=== PATIENT | male | born 1945 | race Caucasian/White ===

== ENCOUNTER 2018-02-18 17:10 | Inpatient (IN) ==
--- NOTE | 2018-02-18 17:38 | Emergency Department Note ---
Disposition Clinical Impression: Cellulitis and abscess of buttock Disposition: Admitted As Inpatient Condition: Fair Referrals: Perfecto Barlow MD [Primary Care Provider] - Lower Extremity Injury HPI - General Stated Complaint: fall Time Seen by Provider: 02/18/18 17:12 Source: patient Mode of arrival: EMS Nursing Notes Reviewed: Yes Vital Signs Reviewed: Yes - History of Present Illness HPI Narrative: 72-year-old male presents for evaluation of pain swelling and redness to his lower inguinal area along with leg swelling and inability to ambulate. Patient states over the last few days he has been developing increasing peripheral edema associated with decreased ability to ambulate secondary to muscular weakness. He has had 4 falls. Patient states no fever or chills. He has had problems with chronic cellulitis to the lower extremities and peripheral edema for some time. Patient states no current chest pain or shortness of breath. He denies a nausea vomiting. He denies any current abdominal pain. He had a fall yesterday that he was seen at [facility] and evaluated for left knee pain which x-rays were found to be normal. He states he was provided an John wrap. - Related Data Home Medications Medication Instructions Recorded Confirmed Atenolol [Tenormin] 25 mg PO DAILY 02/18/18 02/18/18 Cholecalciferol (Vitamin D3) 2,000 unit PO DAILY 02/18/18 02/18/18 [Vitamin D3] Furosemide [Lasix] 40 mg PO BID 02/18/18 02/18/18 Glimepiride [Amaryl] 4 mg PO DAILY 02/18/18 02/18/18 HYDROcodone/Acet 10/325 mg [[place] 1 tab PO Q4HR PRN 02/18/18 02/18/18 10-325 mg] Losartan/Hydrochlorothiazide 1 each PO DAILY 02/18/18 02/18/18 [Losartan-Hctz 100-25 mg Tab] Potassium Chloride [Klor-Con 10 meq PO DAILY 02/18/18 02/18/18 Sprinkle] Pravastatin Sodium [Pravachol] 40 mg PO HS 02/18/18 02/18/18 Spironolactone [Aldactone] 25 mg PO DAILY 02/18/18 02/18/18 Warfarin [Coumadin] 2 mg PO 1800 02/18/18 02/18/18 metFORMIN [Glucophage] 750 mg PO BIDWM 02/18/18 02/18/18 traZODone [TraZODone] 100 mg PO HS 02/18/18 02/18/18 Allergies Allergy/AdvReac Type Severity Reaction Status Date / Time Erythromycin Base Allergy Hives Verified 02/26/17 17:53 moxifloxacin [From Avelox] Allergy Hives Verified 02/26/17 17:53 Penicillins Allergy Hives Verified 02/26/17 17:53 Review of Systems: Constitutional: [Negative for fever and chills.] HENT: [Negative for congestion.] Eyes: [Negative for discharge.] Respiratory: [Negative for shortness of breath.] Cardiovascular: [Negative for chest pain.] Gastrointestinal: [Negative for nausea, vomiting, abdominal pain and diarrhea.] Endocrine: [Negative for excessive thirst,urination] Genitourinary: [Negative for dysuria and frequency.] Musculoskeletal: See history of present illness Skin: see history of present illness Neurological: [Negative for dizziness, localized weakness and headaches.] Psychiatric/Behavioral: [Negative for nervous/anxious.] All other systems reviewed and are negative. Past Medical History - Past Medical History Attestation: Yes The following information was validated with the patient. Source: patient Medical history: Reports: diabetes, hypertension - Social History Smoking Status: Never smoker Smokeless Tobacco Status: No Alcohol use: Reports: none Physical Exam Constitutional: Patient is [alert], morbidly obese and cooperative. HENT: Head: Normocephalic and atraumatic. Right Ear: External ear normal. Left Ear: External ear normal. Nose: Nose normal. Mouth/Throat: Oropharynx is clear and mucous membranes show [good hydration.] Eyes: Conjunctivae and EOM are normal. Pupils are equal, round, and reactive to light. Right eye exhibits [no] discharge. Left eye exhibits [no] discharge. Neck: Trachea is midline, normal range of motion and [phonation normal]. Neck supple. Cardiovascular: [Regular rhythm], S1 normal, S2 normal, normal heart sounds and intact distal pulses. Exam reveals no gallop and no friction rub. No murmur heard. [Capillary refill is brisk.] [Peripheral pulses are 2+] Pulmonary/Chest: Effort [normal] No stridor. [No] tachypnea. [No] respiratory distress. There are [no] decreased breath sounds. [There no wheezes, no rhonchi , or rales.] Abdominal: Soft. [Bowel sounds are normal]. There exhibits [no] distension and [no] mass. There is no hepatosplenomegaly. There is [no tenderness], [no] CVA tenderness. There is [no rigidity, no rebound, no guarding]. Patient has indurated erythematous excoriated skin along his inner folds of his inguinal area inferior aspect. I feel no crepitus. There is some mild superficial skin ulceration Musculoskeletal: Normal range of motion of uninvolved extremities. There exhibits 3+ edema]. He has bandages in place related to his lower extremities with no obvious erythema to the skin] Neurological: Patient is alert. Patient displays no atrophy and no tremor. No cranial nerve deficit and exhibits normal muscle tone. Coordination normal grossly. Skin: Skin is warm and dry. No erythema. No rash noted. Psychiatric: Patient has a normal mood and affect. Course Course Narrative: Patient's laboratory studies show evidence of infection, i.e. cellulitis. Lactic acid being elevated which suggest possibility of early sepsis. I discussed the case with Dr. Gibbs who agrees with admission and possible half-way placement. I have written initial orders for the convenience of the Dr Gibbs. He will assume further care upon the patient's arrival to the floor. Vital Signs Temperature 98.4 F 02/18/18 17:14 Pulse Rate 58 02/18/18 17:14 Respiratory Rate 18 02/18/18 17:14 Blood Pressure 140/74 02/18/18 17:14 O2 Sat by Pulse Oximetry 98 02/18/18 17:14 Temperature 98.4 F 02/18/18 17:14 Pulse Rate 58 02/18/18 17:14 Respiratory Rate 18 02/18/18 17:14 Blood Pressure 140/74 02/18/18 17:14 O2 Sat by Pulse Oximetry 98 02/18/18 17:14 Oxygen Delivery Oxygen Delivery Room Air Extremity Injury, Lower - MDM Narrative Medical decision making narrative: Differential diagnosis includes CELLULITIS, WOUNDS , ARAGON, ABSCESS, CONTACT DERMATITUS, ECZEMA, OR HERPES INFECTION. There is no evidence of NECROTIZING FASCIITIS . - Lab Data Lab results reviewed: Yes I reviewed the patient's lab results. Result diagrams: 02/18/18 17:50 02/18/18 17:50 Lab Results 02/18/18 02/18/18 02/18/18 Range/Units 17:50 17:50 17:50 WBC 11.8 H (4.3-11.1) K/mcL RBC 4.60 (4.19-5.50) M/mcL Hgb 13.7 (12.9-16.9) g/dL Hct 40.9 (37.5-50.1) % MCV 88.9 (83.0-100.0) fL MCH 29.8 (28.0-33.3) pg MCHC 33.5 (31.6-35.5) g/dL RDW 15.1 H (11.5-14.5) % Plt Count 266 (140-400) K/mcL MPV 10.5 (9.4-12.4) fL Immature Gran % 0.3 (0-4) % Seg Neutrophils % 70.8 % Lymphocytes % 18.6 % Monocytes % 7.0 % Eosinophils % 2.9 % Basophils % 0.4 % Neutrophils # 8.4 (1.6-8.9) K/mcL Lymphocytes # 2.2 (0.6-4.6) K/mcL Monocytes # 0.8 (0.0-1.3) K/mcL Eosinophils # 0.3 (0.0-0.6) K/mcL Basophils # 0.1 (0.0-0.2) K/mcL Sodium 133 L (136-145) mEq/L Potassium 4.9 (3.5-5.1) mEq/L Chloride 100 (98-107) mEq/L Carbon Dioxide 28 (23-29) mEq/L BUN 13 (8-23) mg/dL Creatinine 0.73 (0.70-1.30) mg/dL Est GFR ( Amer) > 60 (> 60) Est GFR (Non-Af Amer) > 60 (> 60) BUN/Creatinine Ratio 18 (6-26) Glucose 198 H (70-105) mg/dL Calculated Osmolality 282 (280-300) Lactic Acid 2.5 H (0.5-2.2) mmol/L Calcium 9.4 (8.6-10.3) mg/dL Total Bilirubin 0.5 (0.3-1.0) mg/dL AST 15 (13-39) Units/L ALT 16 (7-52) Units/L Alkaline Phosphatase 62 (34-104) Units/L Serum Total Protein 5.8 L (6.4-8.9) g/dL Albumin 3.1 L (3.5-5.7) g/dL Globulin 2.7 (2.4-3.5) g/dL Albumin/Globulin Ratio 1.1 (1.1-2.2)
[2018-02-18 18:13] LABS: Basophils # 0.1 K/mcL (0.0-0.2); Basophils % 0.4 %; Eosinophils # 0.3 K/mcL (0.0-0.6); Eosinophils % 2.9 %; Hematocrit 40.9 % (37.5-50.1); Hemoglobin 13.7 g/dL (12.9-16.9); Immature Granulocytes % 0.3 % (0-4); Lymphocytes # 2.2 K/mcL (0.6-4.6); Lymphocytes % 18.6 %; Mean Corpuscular HGB Conc 33.5 g/dL (31.6-35.5); Mean Corpuscular Hemoglobin 29.8 pg (28.0-33.3); Mean Corpuscular Volume 88.9 fL (83.0-100.0); Mean Platelet Volume 10.5 fL (9.4-12.4); Monocytes # 0.8 K/mcL (0.0-1.3); Neutrophils # 8.4 K/mcL (1.6-8.9); Platelet Count 266 K/mcL (140-400); Red Cell Distribution Width 15.1 % (11.5-14.5); Segmented Neutrophils % 70.8 %
[2018-02-18 18:33] LABS: Alanine Aminotransferase 16 Units/L (7-52); Albumin 3.1 g/dL (3.5-5.7); Albumin/Globulin Ratio 1.1 (1.1-2.2); Alkaline Phosphatase 62 Units/L (34-104); Aspartate Amino Transferase 15 Units/L (13-39); BUN/Creatinine Ratio 18 (6-26); Bilirubin,Total 0.5 mg/dL (0.3-1.0); Blood Urea Nitrogen 13 mg/dL (8-23); Calcium 9.4 mg/dL (8.6-10.3); Carbon Dioxide 28 mEq/L (23-29); Chloride 100 mEq/L (98-107); Globulin 2.7 g/dL (2.4-3.5); Glucose 198 mg/dL (70-105); Osmolality,Calculated 282 (280-300); Potassium 4.9 mEq/L (3.5-5.1); Sodium 133 mEq/L (136-145); Total Protein 5.8 g/dL (6.4-8.9); eGFR For African Americans > 60 (> 60); eGFR For Non-African Americans > 60 (> 60)
[2018-02-18] MEDS ORDERED: Acetaminophen 325 MG TABLET PO PRN (19:00)
[2018-02-18] MEDS ORDERED: Naloxone 0.4 MG/ML INJ IVP PRN (19:00)
[2018-02-18 19:06] LABS: INR 1.7; Prothrombin Time 18.7 Seconds (9.4-12.1)
[2018-02-18 19:09] LABS: Activated Partial Thrombo Time 34.5 Seconds (26.0-36.0)
[2018-02-18] MEDS ORDERED: *HR* Warfarin 2 MG TABLET PO SCH (21:26)
[2018-02-18] MEDS: cefTRIAXone 1,000 MG in Water for inj. (sterile) 20 ML 10 ML IVP SCH (21:33)
[2018-02-18] MEDS: *HR* HYDROcodone/Acet 10/325 mg TABLET PO PRN (21:34)
[2018-02-18] MEDS: traZODone 50 MG TABLET PO SCH (21:34)
[2018-02-18] MEDS: Furosemide 40 MG TABLET PO SCH (21:34)
[2018-02-18] MEDS: *HR* Warfarin 2 MG TABLET PO SCH (21:57)
[2018-02-19] MEDS: *HR* HYDROcodone/Acet 10/325 mg TABLET PO PRN ×3 (02:45→20:02)
[2018-02-19 07:21] LABS: Basophils # 0.1 K/mcL (0.0-0.2); Basophils % 0.5 %; Eosinophils # 0.6 K/mcL (0.0-0.6); Eosinophils % 6.1 %; Hematocrit 40.3 % (37.5-50.1); Hemoglobin 13.3 g/dL (12.9-16.9); Immature Granulocytes % 0.4 % (0-4); Lymphocytes # 3.1 K/mcL (0.6-4.6); Lymphocytes % 31.4 %; Mean Corpuscular Hemoglobin 29.3 pg (28.0-33.3); Mean Corpuscular Volume 88.8 fL (83.0-100.0); Mean Platelet Volume 10.3 fL (9.4-12.4); Monocytes % 10.3 %; Neutrophils # 5.1 K/mcL (1.6-8.9); Platelet Count 248 K/mcL (140-400); Red Blood Count 4.54 M/mcL (4.19-5.50); Red Cell Distribution Width 15.1 % (11.5-14.5); Segmented Neutrophils % 51.3 %
[2018-02-19] MEDS: cefTRIAXone 1,000 MG in Water for inj. (sterile) 20 ML 10 ML IVP SCH ×2 (07:50→20:01)
[2018-02-19] MEDS: Furosemide 40 MG TABLET PO SCH ×2 (07:51→16:19)
[2018-02-19] MEDS: Cholecalciferol (D-3) 1,000 UNIT TABLET PO SCH (07:51)
[2018-02-19] MEDS: hydroCHLOROthiazide 25 MG TABLET PO SCH (07:51)
[2018-02-19] MEDS: *HR* Glimepiride 4 MG TABLET PO SCH (07:51)
[2018-02-19] MEDS: *HR* Metformin 500 MG TABLET PO SCH ×2 (07:52→16:19)
[2018-02-19] MEDS ORDERED: hydroCHLOROthiazide 25 MG TABLET PO SCH (09:00)
[2018-02-19] MEDS ORDERED: NON-FORMULARY MEDICATION 1 EACH EACH (Losartan/Hydrochlorothiazide [Losartan-Hctz 100-25 M PO SCH (09:00)
[2018-02-19] MEDS ORDERED: Spironolactone 25 MG TABLET PO SCH (09:00)
--- NOTE | 2018-02-19 11:56 | Internal Med History&Physical ---
Date of Encounter: 02/19/18 Time of Encounter: 11:54 Assessment and Plan (1) Cellulitis and abscess of buttock Current visit: Yes Status: Acute Continue antibiotics and monitor for improvement. (2) Morbid obesity Current visit: Yes Status: Acute Provide education (3) Slow transit constipation Current visit: Yes Status: Acute Miralax ordered. Will follow for effectiveness. (4) Diabetes type 2, controlled Current visit: Yes Status: Acute Controlled with current medications. Continue diabetic diet. Monitor fingerstick blood sugars. Will adjust medications as necessary. Qualifiers: Diabetes mellitus shelter insulin use: without terminal superintendent use Diabetes mellitus complication status: without complication Qualified Code(s): E11.9 - Type 2 diabetes mellitus without complications (5) Cellulitis of both lower extremities Current visit: Yes Status: Acute Consult wound for possible olinda boots. Continue antibiotics. Will monitor. Internal Medicine - H&P: HPI Admitted From: Emergency Dept Plans for Post Hospital Care: Home History of present illness: Mr. Fernandez is a 72 year old male admitted to inpatient after arriving to the emergency room last night with general muscle weakness and pain, swelling, redness to lower inguinal area. States he is unable to ambulate. Fell at home with no injury. Has had for recent falls since the of the year. Has chronic cellulitis to bilateral lower extremities. Patient is morbidly obese. Past medical history includes diabetes and hypertension. Patient denies pain, fever, chills, nausea, vomiting or diarrhea. Lives at home alone and daughter helps with care, states his in December. Past Med Surg Social Fam HX - Past Medical History Medical history: cancer, CHF, diabetes, hypertension Psychiatric history: no psych history - Past Surgical History Surgical History: appendectomy, prostatectomy, thyroidectomy Additional surgical history: goiter - Social History Smoking Status: Former smoker Smokeless Tobacco Status: No Alcohol use: none Drug use: none - Family History Daughter Adopted: [place]: Taryn Rojas Age: 50 Family Member Ethnicity: Non- Living Status: Still Living Hx Family Cardiac Disorders: Yes Hx Family Respiratory Disorders: Yes Hx Family Cancer: Yes Hx Family GI Disorders: No Hx Family Genitourinary Disorders: No Hx Family Endocrine Disorder: Yes Hx Family Musculoskeletal Disorders: No Hx Family Neuromuscular Disorders: No Hx Family Neurologic Disorders: No Hx Family HEENT Disorders: No Hx Family Autoimmune Disorders: No Hx Family Reproductive Disorders: No Hx Family Psychosocial Disorders: No Hx Family Medical Disorders: No Internal Medicine - H&P: Meds Atenolol [Tenormin] 25 mg PO DAILY 02/18/18 [History] Cholecalciferol (Vitamin D3) [Vitamin D3] 2,000 unit PO DAILY 02/18/18 [History] Furosemide [Lasix] 40 mg PO BID 02/18/18 [History] Glimepiride [Amaryl] 4 mg PO DAILY 02/18/18 [History] HYDROcodone/Acet 10/325 mg [[place] 10-325 mg] 1 tab PO Q4HR PRN 02/18/18 [History ] Losartan/Hydrochlorothiazide [Losartan-Hctz 100-25 mg Tab] 1 each PO DAILY 02/18 [History] Potassium Chloride [Klor-Con Sprinkle] 10 meq PO DAILY 02/18/18 [History] Pravastatin Sodium [Pravachol] 40 mg PO HS 02/18/18 [History] Spironolactone [Aldactone] 25 mg PO DAILY 02/18/18 [History] Warfarin [Coumadin] 2 mg PO 1800 02/18/18 [History] metFORMIN [Glucophage] 750 mg PO BIDWM 02/18/18 [History] traZODone [TraZODone] 100 mg PO HS 02/18/18 [History] 3 Allergy/AdvReac Type Severity Reaction Status Date / Time Erythromycin Base Allergy Hives Verified 02/26/17 17:53 moxifloxacin [From Avelox] Allergy Hives Verified 02/26/17 17:53 Penicillins Allergy Hives Verified 02/26/17 17:53 All Systems PM: A 10-system review of systems was performed and is negative for pertinent findings except as documented above in the HPI. - Constitutional Constitutional: no chills, no fever(s), no night sweats - EENT Eyes: no change in vision, no discharge, no pain, no photophobia Ears: no ear discharge, no ear pain, no tinnitus Nose, mouth and throat: no dysphagia, no nasal discharge, no neck pain, no sore throat - Cardiovascular Cardiovascular ROS IM: no chest pain, no diaphoresis, no dyspnea, no lightheadedness, no palpitations, no syncope - Respiratory Respiratory: no cough, no dyspnea, no wheezing, no excessive phlegm production - Gastrointestinal Gastrointestinal: no abdominal pain, no diarrhea, no hematemesis, no hematochezia, no melena, no nausea, no vomiting - Musculoskeletal Musculoskeletal ROS IM: as per HPI, muscle weakness, no numbness, no tingling - Integumentary Integumentary IM: no rash, no unusual bruising - Neurological Neurological ROS: no confusion, no convulsions, no focal weakness, no numbness, no tingling, no tremor(s) - Hematologic/Lymphatic Hematologic/Lymphatic: no easy bruising - Constitutional Vitals: Temp Pulse Resp BP Pulse Ox 97.7 F 61 17 146/69 95 02/19/18 11:00 02/19/18 11:00 02/19/18 11:00 02/19/18 11:00 02/19/18 11:00 General appearance: Present: cooperative, A&O X 3, morbidly obese, pleasant, no acute distress, answers questions appropriately Exam: Incontinent of urine - Head Head exam: Present: atraumatic, normocephalic - Eye Eye exam: Present: PERRL, conjuntiva pink, sclera anicteric Pupils: Present: PERRL - Neck Neck exam general surgery: Present: supple, trachea midline. Absent: lymphadenopathy - Respiratory Respiratory exam: Present: CTAB. Absent: accessory muscle use, rales, rhonchi, wheezes - Cardiovascular Cardiovascular exam: Present: RRR, +S1, +S2. Absent: diastolic murmur, gallop, rubs, systolic murmur - GI/Abdominal GI/Abdominal exam: Present: normal bowel sounds, soft, no peritoneal signs. Absent: distended, tenderness - Extremities Exam Extremities exam: Present: warm, radial pulses palpable and symmetrical. Absent : calf tenderness, cyanotic, pedal edema Additional comments: Bilateral lower extremities wrapped and dressings dry and intact. Left inner thigh excoriated with surrounding redness and possible abscess - Neurological Exam Neurological exam: Present: CN II-XII intact, oriented X3, no focal deficits. Absent: pronater drift, facial droop, speech deficit - Skin Skin exam: Present: dry, intact Internal Med - H&P Results - Labs CBC & Chem 7: 02/19/18 06:54 02/18/18 17:50 Labs: Short CBC 02/19/18 Range/Units 06:54 WBC 9.9 (4.3-11.1) K/mcL Hgb 13.3 (12.9-16.9) g/dL Hct 40.3 (37.5-50.1) % Plt Count 248 (140-400) K/mcL Neutrophils # 5.1 (1.6-8.9) K/mcL
[2018-02-19] MEDS: *HR* Warfarin 2 MG TABLET PO SCH (16:19)
[2018-02-19] MEDS ORDERED: *HR* Warfarin 2 MG TABLET PO SCH (18:00)
[2018-02-19] MEDS: Spironolactone 25 MG TABLET PO SCH (20:01)
[2018-02-19] MEDS: traZODone 50 MG TABLET PO SCH (20:01)
[2018-02-20] MEDS: *HR* HYDROcodone/Acet 10/325 mg TABLET PO PRN (02:27)
[2018-02-20] MEDS: cefTRIAXone 1,000 MG in Water for inj. (sterile) 20 ML 10 ML IVP SCH ×2 (06:33→18:12)
[2018-02-20] MEDS: Furosemide 40 MG TABLET PO SCH ×2 (08:52→18:07)
[2018-02-20] MEDS: hydroCHLOROthiazide 25 MG TABLET PO SCH (08:52)
[2018-02-20] MEDS: *HR* Metformin 500 MG TABLET PO SCH ×2 (08:53→18:06)
[2018-02-20] MEDS: Cholecalciferol (D-3) 1,000 UNIT TABLET PO SCH (08:54)
[2018-02-20] MEDS: *HR* Glimepiride 4 MG TABLET PO SCH (08:54)
[2018-02-20] MEDS: Spironolactone 25 MG TABLET PO SCH ×2 (08:54→20:46)
--- NOTE | 2018-02-20 12:49 | Internal Med Progress Note ---
Date of Encounter: 02/20/18 Time of Encounter: 12:46 - Assessment and plan (1) Cellulitis and abscess of buttock Current Visit: Yes Status: Acute Assessment and plan: Continue antibiotics. Monitor for improvement. (2) Morbid obesity Current Visit: Yes Status: Acute Assessment and plan: Provide education (3) Slow transit constipation Current Visit: Yes Status: Acute Assessment and plan: Miralax ordered (4) Diabetes type 2, controlled Current Visit: Yes Status: Acute Assessment and plan: controlled with current medication. Monitor fingerstick blood sugar. Will adjust medicines necessary. Qualifiers: Diabetes mellitus termite exterminator helper insulin use: without termite exterminator helper use Diabetes mellitus complication status: without complication Qualified Code(s): E11.9 - Type 2 diabetes mellitus without complications (5) Cellulitis of both lower extremities Current Visit: Yes Status: Acute Assessment and plan: Chronic. Continue antibiotics. olinda boots in place (6) Osteoarthritis of left knee Current Visit: Yes Status: Acute Assessment and plan: Follow up with ortho after discharge. Qualifiers: Osteoarthritis type: primary Qualified Code(s): M17.12 - Unilateral primary osteoarthritis, left knee - Time Spent With Patient 25 - 35 minutes - Subjective Interval history: Patient to have evaluation with physical therapy and occupational therapy today. Denies pain, fever, chills, nausea, vomiting or diarrhea. Denies shortness of breath or chest pain. Continues IV antibiotics for cellulitis. Has history of chronic cellulitis bilateral lower extremities. olinda boots in place. Patient scheduled to discharge to [facility] tomorrow. Discussed following up with ortho for occasional left knee pain. Has been diagnosed in the past with osteoarthritis. - Constitutional Vitals: Temp Pulse Resp BP Pulse Ox 97.7 F 61 18 117/48 95 02/20/18 12:11 02/20/18 12:11 02/20/18 12:11 02/20/18 12:11 02/20/18 12:11 General appearance: Present: cooperative, A&O X 3, morbidly obese, pleasant, no acute distress, answers questions appropriately - Head Head exam: Present: atraumatic, normocephalic - Eye Eye exam: Present: PERRL, conjuntiva pink, sclera anicteric Pupils: Present: PERRL - Neck Neck exam general surgery: Present: supple, trachea midline. Absent: lymphadenopathy - Respiratory Respiratory exam: Present: CTAB. Absent: accessory muscle use, rales, rhonchi, wheezes - Cardiovascular Cardiovascular exam: Present: RRR, +S1, +S2. Absent: diastolic murmur, gallop, rubs, systolic murmur - GI/Abdominal GI/Abdominal exam: Present: normal bowel sounds, soft, no peritoneal signs. Absent: distended, tenderness - Extremities Exam Extremities exam: Present: warm, radial pulses palpable and symmetrical. Absent : calf tenderness, cyanotic, pedal edema Additional comments: Bilateral lower extremities olinda boots intact - Neurological Exam Neurological exam: Present: CN II-XII intact, oriented X3, no focal deficits. Absent: pronater drift, facial droop, speech deficit - Skin Skin exam: Present: dry, intact Additional comments: excoriation to left inner thigh with surrounding redness Internal Medicine: Result - Labs CBC & Chem 7: 02/19/18 06:54 02/18/18 17:50 - ABG Interpretation ABG results: PT/INR, D-dimer PT 18.7 Seconds (9.4-12.1) H 02/18/18 18:00 - VTE Documentation of Mechanical Device: Intermittent pneumatic compression device Consult Discharge Plan - Plan Referrals: Perfecto Barlow MD [Primary Care Provider] -
[2018-02-20] MEDS ORDERED: Lidocaine 1% 20 ML MDV INFILT ONE (14:37)
[2018-02-20] MEDS ORDERED: MethylPREDNISolone Acet(DEPOT) 40 MG/ML VIAL INTRAART ONE (14:37)
[2018-02-20 15:45] LABS: INR 1.7
[2018-02-20] MEDS: *HR* Warfarin 2 MG TABLET PO SCH (18:07)
--- NOTE | 2018-02-20 19:34 | Physcial Medicine-Consult Note ---
Date of Encounter: 02/20/18 Time of Encounter: 18:30 Physical Medicine - AP (1) Osteoarthritis of left knee Status: Acute Assessment and plan: Continue current care. Not enough effusion to tap. Steroids not appropriate for acute injury. Ice or heat Tylenol or narcotic short term. Code(s): M17.12 - Unilateral primary osteoarthritis, left knee SNOMED Code(s) : [id number] Physical Medicine - HPI - Data of Consult Requesting Physician: Evans Gibbs MD Primary Care Provider: Perfecto Barlow MD - Consult Narrative History of present illness: Mr. Fernandez is a 72 year old RH male fell at home 3 days ago. He landed with his left leg twisted under him. He's had left knee pain since. An effusion was reported. I was asked to tap the knee and apply steroid injection. CC: Evans Gibbs MD Past Med Surg Social Fam HX - Past Medical History Attestation: Yes The following information was validated with the patient. Medical history: cancer, CHF, diabetes, hypertension Psychiatric history: no psych history - Past Surgical History Surgical History: appendectomy, prostatectomy, thyroidectomy Additional surgical history: goiter - Social History Smoking Status: Former smoker Smokeless Tobacco Status: No Alcohol use: none Drug use: none - Family History Daughter Adopted: [place]: Taryn Rojas Age: 50 Family Member Ethnicity: Non- Living Status: Still Living Hx Family Cardiac Disorders: Yes Hx Family Respiratory Disorders: Yes Hx Family Cancer: Yes Hx Family GI Disorders: No Hx Family Genitourinary Disorders: No Hx Family Endocrine Disorder: Yes Hx Family Musculoskeletal Disorders: No Hx Family Neuromuscular Disorders: No Hx Family Neurologic Disorders: No Hx Family HEENT Disorders: No Hx Family Autoimmune Disorders: No Hx Family Reproductive Disorders: No Hx Family Psychosocial Disorders: No Hx Family Medical Disorders: No Medications and Allergies Atenolol [Tenormin] 25 mg PO DAILY 02/18/18 [History] Cholecalciferol (Vitamin D3) [Vitamin D3] 2,000 unit PO DAILY 02/18/18 [History] Furosemide [Lasix] 40 mg PO BID 02/18/18 [History] Glimepiride [Amaryl] 4 mg PO DAILY 02/18/18 [History] HYDROcodone/Acet 10/325 mg [[place] 10-325 mg] 1 tab PO Q4HR PRN 02/18/18 [History ] Losartan/Hydrochlorothiazide [Losartan-Hctz 100-25 mg Tab] 1 each PO DAILY 02/18 [History] Potassium Chloride [Klor-Con Sprinkle] 10 meq PO DAILY 02/18/18 [History] Pravastatin Sodium [Pravachol] 40 mg PO HS 02/18/18 [History] Spironolactone [Aldactone] 25 mg PO DAILY 02/18/18 [History] Warfarin [Coumadin] 2 mg PO 1800 02/18/18 [History] metFORMIN [Glucophage] 750 mg PO BIDWM 02/18/18 [History] traZODone [TraZODone] 100 mg PO HS 02/18/18 [History] 3 Allergy/AdvReac Type Severity Reaction Status Date / Time Erythromycin Base Allergy Hives Verified 02/26/17 17:53 moxifloxacin [From Avelox] Allergy Hives Verified 02/26/17 17:53 Penicillins Allergy Hives Verified 02/26/17 17:53 All systems: reviewed and no additional remarkable complaints except as stated Physical Medicine - Exam - Constitutional Vitals: Temp Pulse Resp BP Pulse Ox 97.7 F 18 55 95/56 97 02/20/18 16:00 02/20/18 16:00 02/20/18 16:00 02/20/18 16:00 02/20/18 16:00 General appearance: cooperative, morbidly obese, no acute distress - Head Head exam: Present: atraumatic, normocephalic - Eye Eye exam: Present: EOMI - ENT ENT exam: Present: mucous membranes moist - Neck Neck exam: Present: full ROM - Respiratory Respiratory exam: Present: CTAB - Cardiovascular Cardiovascular exam: Present: RRR - GI/Abdominal GI/Abdominal exam: Present: normal bowel sounds, soft - Extremities Exam Additional comments: The left knee is not bigger than the right. Pain to palpation around the patellar margin. No ballotment of fluid shift. No discoloration. Distal strength is reduced to 4/5 ankle dorsiflexion. - Neurological Exam Neurological exam: Present: abnormal gait, alert, oriented X3 Additional comments: Cannot localize sensation in the feet. - Psychiatric Psychiatric exam: Present: normal affect, normal mood - Skin Additional comments: Multiple open sores on legs from stasis and skin folds from moisture. Physical Medicine - Results - Labs CBC & Chem 7: 02/19/18 06:54 02/18/18 17:50 Consult Discharge Plan - Plan Referrals: Pefrecto Barlow MD [Primary Care Provider] -
[2018-02-20] MEDS: traZODone 50 MG TABLET PO SCH (20:46)
[2018-02-21] MEDS: *HR* HYDROcodone/Acet 10/325 mg TABLET PO PRN ×5 (00:28→20:39)
[2018-02-21 05:30] LABS: INR 1.8; Prothrombin Time 19.1 Seconds (9.4-12.1)
[2018-02-21] MEDS: cefTRIAXone 1,000 MG in Water for inj. (sterile) 20 ML 10 ML IVP SCH (06:16)
[2018-02-21] MEDS: hydroCHLOROthiazide 25 MG TABLET PO SCH (08:34)
[2018-02-21] MEDS: *HR* Metformin 500 MG TABLET PO SCH ×2 (08:35→16:44)
[2018-02-21] MEDS: Cholecalciferol (D-3) 1,000 UNIT TABLET PO SCH (08:35)
[2018-02-21] MEDS: Furosemide 40 MG TABLET PO SCH ×2 (08:36→16:43)
[2018-02-21] MEDS: *HR* Glimepiride 4 MG TABLET PO SCH (08:36)
[2018-02-21] MEDS: Spironolactone 25 MG TABLET PO SCH ×2 (08:37→20:39)
--- NOTE | 2018-02-21 13:52 | Discharge Summary ---
Orders not resulted at time of discharge: Pending orders 02/22/18 04:00 INR/PT [Prothrombin Time INR] [COAG] AM 0400 02/23/18 04:00 INR/PT [Prothrombin Time INR] [COAG] AM 0400 02/24/18 04:00 INR/PT [Prothrombin Time INR] [COAG] AM 0400 02/25/18 04:00 INR/PT [Prothrombin Time INR] [COAG] AM 0400 02/26/18 04:00 INR/PT [Prothrombin Time INR] [COAG] AM 0400 02/27/18 04:00 INR/PT [Prothrombin Time INR] [COAG] AM 0400 Date of Encounter: 02/21/18 Time of Encounter: 13:49 - Discharge Diagnosis (1) Cellulitis of both lower extremities Priority: Primary Status: Acute Comments: Started on Rocephin on adimission. Legs remain wrapped due to chronic lymphedema. No erythema noted. Will DC with clyndamycin. (2) Diabetes type 2, controlled Priority: Secondary Status: Acute Comments: No acute issues during admission. Covered with SSI. Continued on home meds after DC. Qualifiers: Diabetes mellitus equipment operator intermodal yard insulin use: without equipment operator intermodal yard use Diabetes mellitus complication status: without complication Qualified Code(s): E11.9 - Type 2 diabetes mellitus without complications (3) Osteoarthritis of left knee Priority: Secondary Status: Acute Comments: No complaints during stay. Continue on current meds at home. Qualifiers: Osteoarthritis type: primary Qualified Code(s): M17.12 - Unilateral primary osteoarthritis, left knee Hospital course: Mr. Fernandez is a 72 year old male admitted to inpatient after arriving to the emergency room last night with general muscle weakness and pain, swelling, redness to lower inguinal area. Noted chronic lymphedema with leg wraps applied. States has been unable to ambulate and fell at home with no injury. Has had for several recent falls over the past year. Also has chronic cellulitis to bilateral lower extremities. Patient is morbidly obese with medical history includes diabetes and hypertension. Patient denies pain, fever , chills, nausea, vomiting or diarrhea. Lives at home alone and daughter helps with care, states his in December. Patient was start on Rocephin at admission. Remains afebrile. Bilateral legs have been wrapped. Continued slight erythema to groin area. Will DC to SNF with oral ATB Discharge discussed with: patient Time spent discussing smoking cessation with patient: 3 to 10 minutes - Time Spent with Patient Total time spent providing and/or coordinating discharge services: Less than 30 minutes - Discharge Medications Home Medications: Atenolol [Tenormin] 25 mg PO DAILY 02/18/18 [History] Cholecalciferol (Vitamin D3) [Vitamin D3] 2,000 unit PO DAILY 02/18/18 [History] Furosemide [Lasix] 40 mg PO BID 02/18/18 [History] Glimepiride [Amaryl] 4 mg PO DAILY 02/18/18 [History] HYDROcodone/Acet 10/325 mg [[place] 10-325 mg] 1 tab PO Q4HR PRN 02/18/18 [History ] Losartan/Hydrochlorothiazide [Losartan-Hctz 100-25 mg Tab] 1 each PO DAILY 02/18 [History] Potassium Chloride [Klor-Con Sprinkle] 10 meq PO DAILY 02/18/18 [History] Pravastatin Sodium [Pravachol] 40 mg PO HS 02/18/18 [History] Spironolactone [Aldactone] 25 mg PO DAILY 02/18/18 [History] Warfarin [Coumadin] 2 mg PO 1800 02/18/18 [History] metFORMIN [Glucophage] 750 mg PO BIDWM 02/18/18 [History] traZODone [TraZODone] 100 mg PO HS 02/18/18 [History] Allergies/Adverse Reactions: 3 Allergy/AdvReac Type Severity Reaction Status Date / Time Erythromycin Base Allergy Hives Verified 02/26/17 17:53 moxifloxacin [From Avelox] Allergy Hives Verified 02/26/17 17:53 Penicillins Allergy Hives Verified 02/26/17 17:53 Date of admission: 02/18/18 20:36 Primary care physician: Perfecto Barlow MD Consults: 02/19/18 01:56 Consult to Partner [CONS] Routine Reason for SW Consult: ECF placement 02/19/18 13:28 Consult to Wound Care [CONS] Routine Reason for Consult: please eval bilat LE for need for olinda boots Call Completed: Yes 02/20/18 10:07 Consult to Physical Therapy [CONS] Routine Comment: Evaluate, develop and implement POC Reason for Consult: eval only, multiple falls recently Does patient have active BEDREST order?: No Is patient medically & hemodynamically stable?: Yes OT [Consult to Occupational Therapy] [CONS] Routine Comment: Evaluate, develop and implement POC Reason for Consult: eval only, multiple recent falls. Does patient have active BEDREST order?: No Is patient medically & hemodynamically stable?: Yes Discharging clinician: Noah Turcios Anticipated date of discharge: 02/21/18 - Constitutional Vitals: Temp Pulse Resp BP Pulse Ox 98.3 F 54 18 129/56 94 02/21/18 11:56 02/21/18 11:56 02/21/18 11:56 02/21/18 11:56 02/21/18 11:56 General appearance: Present: cooperative, A&O X 3, morbidly obese, pleasant, no acute distress, answers questions appropriately - Head Head exam: Present: atraumatic, normocephalic - Eye Eye exam: Present: PERRL, conjuntiva pink, sclera anicteric Pupils: Present: PERRL - Neck Neck exam general surgery: Present: supple, trachea midline. Absent: lymphadenopathy - Respiratory Respiratory exam: Present: CTAB. Absent: accessory muscle use, rales, rhonchi, wheezes - Cardiovascular Cardiovascular exam: Present: RRR, +S1, +S2. Absent: diastolic murmur, gallop, rubs, systolic murmur - GI/Abdominal GI/Abdominal exam: Present: normal bowel sounds, soft, no peritoneal signs. Absent: distended, tenderness - Additional comments: Groin and scrotum remain reddened. No open wounds. - Extremities Exam Extremities exam: Present: warm, radial pulses palpable and symmetrical. Absent : calf tenderness, cyanotic, pedal edema Additional comments: Bilateral lower legs with +2 edema with leg wraps in place. - Neurological Exam Neurological exam: Present: CN II-XII intact, oriented X3, no focal deficits. Absent: pronater drift, facial droop, speech deficit - Skin Skin exam: Present: dry, intact - Patient Status Disposition: Transfer SNF Condition: Good Functional capacity at discharge: uses cane/walker Overall status at discharge: patient is progressing back to baseline - Discharge Instructions Follow Up With: Perfecto Barlow MD [Primary Care Provider] - Forms: ED Satisfaction Letter - Diet and Activity Activity: ambulate only with your walker, increase activity as tolerated, resume usual activities as tolerated Diet: diabetic diet, low fat, low cholesterol, low salt diet - VTE Documentation of Mechanical Device: Graduated compression elastic hosiery
--- NOTE | 2018-02-21 14:06 | Physician Discharge Referral ---
ExtendedCare Referral Info Provider in Charge after Transfer: PCP Institutional Level of Care: Skilled - Diagnosis (1) Cellulitis of both lower extremities Priority: Primary Status: Acute (2) Diabetes type 2, controlled Priority: Secondary Status: Chronic (3) Osteoarthritis of left knee Priority: Secondary Status: Chronic Prognosis: Good Aware of Diagnosis: Patient Aware of Prognosis: Patient - Transfer Medications Home Medications: Atenolol [Tenormin] 25 mg PO DAILY 02/18/18 [History] Cholecalciferol (Vitamin D3) [Vitamin D3] 2,000 unit PO DAILY 02/18/18 [History] Furosemide [Lasix] 40 mg PO BID 02/18/18 [History] Glimepiride [Amaryl] 4 mg PO DAILY 02/18/18 [History] HYDROcodone/Acet 10/325 mg [[place] 10-325 mg] 1 tab PO Q4HR PRN 02/18/18 [History ] Losartan/Hydrochlorothiazide [Losartan-Hctz 100-25 mg Tab] 1 each PO DAILY 02/18 [History] Potassium Chloride [Klor-Con Sprinkle] 10 meq PO DAILY 02/18/18 [History] Pravastatin Sodium [Pravachol] 40 mg PO HS 02/18/18 [History] Spironolactone [Aldactone] 25 mg PO DAILY 02/18/18 [History] Warfarin [Coumadin] 2 mg PO 1800 02/18/18 [History] metFORMIN [Glucophage] 750 mg PO BIDWM 02/18/18 [History] traZODone [TraZODone] 100 mg PO HS 02/18/18 [History] Allergies/Adverse Reactions: 3 Allergy/AdvReac Type Severity Reaction Status Date / Time Erythromycin Base Allergy Hives Verified 02/26/17 17:53 moxifloxacin [From Avelox] Allergy Hives Verified 02/26/17 17:53 Penicillins Allergy Hives Verified 02/26/17 17:53 - Respiratory Orders Smoking Cessation: Smoking cessation has been advised. For more information, call the [employer] Tobacco Quit Line at 7-713-GXVG-NOW. - Ancillary Orders May use pressure relief devices daily prn, May go on RUEL w/family/respon green party w /meds at nurse discretion PRN, May consult with Dentist, Logging Tractor Operator, Fryer Operator PRN - Mobility Orders Ambulate - Rehabiliation Orders Rehab Potential: Good Rehab Orders: Evaluation for Physical Therapy, Evaluation for Occupational Therapy - Treatments Skin tear care topically daily PRN per policy, May check for fecal impaction rectally daily PRN, Fleet enema rectally every other day PRN cleansing purposes - Diet Orders No Added Salt (ROSARIO), No Concentrated Sweets, Cardiac CERTIFICATION: I certify that the transfer of the above named patient to an Extended Care Facility is necessary for the continuing treatment of the diagnosis listed. The above information is true and accurate reflection of patient's current condition. Confidential - Redisclosure prohibited without a patient's written consent.
[2018-02-21] MEDS ORDERED: *HR* Warfarin 2.5 MG TABLET PO ONE (18:00)
[2018-02-21] MEDS: traZODone 50 MG TABLET PO SCH (20:38)
[2018-02-22 08:03] LABS: INR 1.7; Prothrombin Time 18.8 Seconds (9.4-12.1)
[2018-02-22] MEDS: *HR* Metformin 500 MG TABLET PO SCH ×2 (08:13→16:37)
[2018-02-22] MEDS: Furosemide 40 MG TABLET PO SCH ×2 (08:15→16:37)
[2018-02-22] MEDS: *HR* Glimepiride 4 MG TABLET PO SCH (08:15)
[2018-02-22] MEDS: hydroCHLOROthiazide 25 MG TABLET PO SCH (08:15)
[2018-02-22] MEDS: Spironolactone 25 MG TABLET PO SCH (08:15)
[2018-02-22] MEDS: Cholecalciferol (D-3) 1,000 UNIT TABLET PO SCH (08:15)
[2018-02-22] MEDS: *HR* HYDROcodone/Acet 10/325 mg TABLET PO PRN ×2 (08:57→14:12)
--- NOTE | 2018-02-22 11:54 | Internal Med Progress Note ---
Date of Encounter: 02/22/18 Time of Encounter: 11:51 - Assessment and plan (1) Cellulitis of both lower extremities Current Visit: Yes Status: Acute Assessment and plan: Legs remain wrapped due to lymphedema. No erythema noted. Cellulitis appears resolved to the legs. Continued reddened area to the groin/scrotum. Continue on oral clindamycin after DC to SNF. (2) Diabetes type 2, controlled Current Visit: Yes Status: Chronic Assessment and plan: No acute issues. Continue on FS with SSI after DC. Qualifiers: Diabetes mellitus chcf insulin use: without chcf use Diabetes mellitus complication status: without complication Qualified Code(s): E11.9 - Type 2 diabetes mellitus without complications (3) Osteoarthritis of left knee Current Visit: Yes Status: Chronic Assessment and plan: No acute issues. PRN [place] for c/o pain. Continue on current meds after DC to SNF Qualifiers: Osteoarthritis type: primary Qualified Code(s): M17.12 - Unilateral primary osteoarthritis, left knee (4) Slow transit constipation Current Visit: Yes Status: Acute Assessment and plan: c/o contipation. Minimal result to 1/2 bottle Mag citrate. Will give 3 dulcolax tabs now. - Time Spent With Patient less than 15 minutes - Subjective Interval history: Patient continues to c/o of constipation. Given Mag Citrate yesterday with minimal results. Nursing reports patient only took 1/2 bottle and refused the rest. Otherwise no c/o discomforts or dyspnea. Patient being transferred to SNF today. - Constitutional Vitals: Temp Pulse Resp BP Pulse Ox 98.1 F 63 14 145/69 92 02/22/18 07:00 02/22/18 07:00 02/22/18 07:00 02/22/18 07:00 02/22/18 07:00 General appearance: Present: cooperative, A&O X 3, morbidly obese, pleasant, no acute distress, answers questions appropriately - Head Head exam: Present: atraumatic, normocephalic - Eye Eye exam: Present: PERRL, conjuntiva pink, sclera anicteric Pupils: Present: PERRL - Neck Neck exam general surgery: Present: supple, trachea midline. Absent: lymphadenopathy - Respiratory Respiratory exam: Present: CTAB. Absent: accessory muscle use, rales, rhonchi, wheezes Additional comments: CTA upper mendoza and diminished to basilar mendoza. RR relaxed. - Cardiovascular Cardiovascular exam: Present: RRR, +S1, +S2. Absent: diastolic murmur, gallop, rubs, systolic murmur - GI/Abdominal GI/Abdominal exam: Present: normal bowel sounds, soft, no peritoneal signs. Absent: distended, tenderness - Extremities Exam Extremities exam: Present: warm, radial pulses palpable and symmetrical. Absent : calf tenderness, cyanotic, pedal edema Additional comments: Bilateral lower leg lymphedema with wraps in place. - Neurological Exam Neurological exam: Present: CN II-XII intact, oriented X3, no focal deficits. Absent: pronater drift, facial droop, speech deficit - Skin Skin exam: Present: dry, intact Internal Medicine: Result - Labs CBC & Chem 7: 02/19/18 06:54 02/18/18 17:50 - ABG Interpretation ABG results: PT/INR, D-dimer PT 18.8 Seconds (9.4-12.1) H 02/22/18 06:35 - VTE Documentation of Mechanical Device: Graduated compression elastic hosiery Consult Discharge Plan - Plan Instructions: Warfarin (By mouth) Referrals: Perfecto Barlow MD [Primary Care Provider] -
[2018-02-22 14:05] VITALS: BP 114/75
--- NOTE | 2018-02-22 14:25 | Event Note ---
Date of Encounter: 02/22/18 Time of Encounter: 14:23 Patient c/o no BM since last Sunday. States he has he urge but only has gas when on the toilet. Abd remains soft, nondistended and nontender. Noted small about of bruising to the RLQ area, which appears to be healing. Bruising occured from his fall at home. Patient c/o having burps and reflux. No results from the Mag Citrate last night. Will give Dulcolax supp now and obtain a KUB to r/o ileus.
[2018-02-22] MEDS ORDERED: Bisacodyl 10 MG RECTAL SUPPOSITORY RC STA (14:26)
[2018-02-22] MEDS ORDERED: *HR* Warfarin 3 MG TABLET PO SCH (18:00)
[2018-02-22] MEDS ORDERED: Metoclopramide 10 MG/10 ML UD.LIQ PO SCH (18:00)
[2018-02-22] MEDS ORDERED: Sennosides 8.6 MG TABLET PO SCH (21:00)
== END 2018-02-22 17:08 | DRG 603 ==
LOC: INPGRE 17:10 → EMEROOGRE 17:10 → INPGRE 19:30